=== PATIENT | male | born 1965 | race Caucasian/White ===

== ENCOUNTER 2017-05-21 23:29 | Emergency (ER) | payer BC ==
[~2017-05-21] VITALS: Ht 180.3 cm; Wt 79.7 kg
[~2017-05-21 23:29] MED LIST: FLUO10CA48 PO; LISI5TAB3 PO; [UNRECOGNIZED DRUG - REMARK]
[2017-05-21 23:35] VITALS: TEMP 36.7; Ht 180.3 cm; Wt 79.7 kg
[2017-05-21] MEDS ORDERED: TERA5CAP PO (23:46)
[2017-05-21] MEDS ORDERED: LISI10TA PO (23:46)
[2017-05-21] MEDS ORDERED: CETI10TA84 PO (23:48)
[2017-05-21] MEDS ORDERED: TRIA1SPR4 (23:48)
[2017-05-21] MEDS ORDERED: PRLSR20 PO (23:48)
[2017-05-21] MEDS ORDERED: FEXO-101 PO (23:48)
[2017-05-22] MEDS ORDERED: MoRPHine SULFATE 10 MG/ML CARP/VIAL ONE (00:09)
[2017-05-22] MEDS ORDERED: ONDANSETRON INJ 2 MG/ML 2 ML VIAL ONE (00:09)
[2017-05-22] MEDS ORDERED: KETOROLAC TROMETHAMINE 30 MG/ML VIAL ONE (00:09)
[2017-05-22] MEDS ORDERED: SODIUM CHLORIDE 0.9% 1000ML 1,000 ML IV STA ×2 (00:10→01:29)
--- NOTE | 2017-05-22 00:21 | EMERGENCY ROOM VISIT NOTE ---
History Report prepared by Gera: César Encarnacion Under the Supervision of: Dr. Katy Lopez D.O. First contact with patient: 23:58 Chief Complaint: KIDNEY STONE Stated Complaint: KIDNEY STONE History of Present Illness The patient is a 52 year old male who presents to the Emergency Room with complaints of constant right flank pain beginning prior to arrival. He currently rates his discomfort a 9/10 in severity. The patient states that he was getting ready to lay down to sleep, and his pain suddenly started. He reports that he has a history of one kidney stone, and he passed it before needing surgery. The patient notes that it is on the same side as before, and his symptoms are very similar. He states that he has not had any changes in his diet or lifestyle over the past few days. The patient reports that he has not been able to urinate since, and he almost vomited, but he he did not. He notes that he took one hydrocodone pill for pain. The patient states that he has no other medical problems other than hypertension. Source of History: patient Onset: prior to arrival Position: other (right flank) Symptom Intensity: 9/10 Timing: constant Associated Symptoms: + urinary symptoms (decrease urinary frequency), No vomiting Review of Systems See HPI for pertinent positives & negatives. A total of 10 systems reviewed and were otherwise negative. Past Medical & Surgical Medical Problems: (1) HTN (hypertension) (2) Kidney stone Family History Cancer Heart disease Hypertension Kidney disease Kidney stones Social History Smoking Status: Never Smoker Smokeless Tobacco Use: No Alcohol Use: none Marital Status: Housing Status: lives with significant other Occupation Status: employed Current/Historical Medications Scheduled Cetirizine (Zyrtec), 10 MG PO DAILY Fexofenadine HCl (Allergy 24-Hr), 180 MG PO DAILY Lisinopril (Prinivil), 10 MG PO DAILY Terazosin (Hytrin), 5 MG PO DAILY Triamcinolone Acetonide (Nasal (Nasacort Allergy 24Hr), 1 SPRAY NA DAILY Scheduled PRN Omeprazole (Prilosec), 20 MG PO DAILY PRN for Heartburn Oxycodone/Acetaminophen 5MG/325MG (Percocet 5MG/325MG), 1-2 TABLETS PO Q4H PRN for Pain Allergies Coded Allergies: Sulfamethoxazole w/Trimethoprim (Verified Allergy, Intermediate, HIVES, ) Physical Exam Vital Signs Date Time Temp Pulse Resp B/P (MAP) Pulse Ox O2 Delivery O2 Flow Rate FiO2 05/22/17 02:20 74 18 122/78 98 05/22/17 01:13 66 18 124/84 96 Room Air 05/21/17 23:35 36.7 72 16 147/99 99 Room Air Physical Exam HEENT: Head - normocephalic and atraumatic Pupils are equal, round, and reactive to light. Extraocular eye muscles are intact, and sclera are anicteric. Nose - moist nasal mucosa without discharge. Mouth - moist buccal mucosa. Oropharynx is nonerythematous and there is no tonsillar exudate or edema noted. Neck: Supple; no JVD, nuchal rigidity, cervical lymphadenopathy. Heart: Regular rate and rhythm. There is a normal S1 and S2 with no murmurs, clicks, or gallops appreciated. Lungs: Clear to auscultation bilaterally with no wheezes, rales, or rhonchi. Abdomen: Soft, completely nontender, nondistended, with good bowel sounds. There are no palpable pulsatile masses or hepatosplenomegaly. There is no guarding, rigidity, or rebound noted. Back: Erythema over right back and flank where he was rubbing that area Extremities: No evidence of cyanosis, clubbing, or edema. There are easily palpable peripheral pulses. Skin: Pale and diaphoretic with good turgor Medical Decision & Procedures ER Provider Diagnostic Interpretation: CT results as stated below per my review and radiologist interpretation: CT ABDOMEN & PELVIS: Approximate 5 mm stone at the proximal right ureter without appreciable postobstructive change at this time. Additional punctate nonobstructing stone in the left kidney. Remainder of noncontrast study shows no definite evidence for an additional acute inflammatory process. Radiologist: Andrew Goddard MD Study ready at 0052 and initial results transmitted at 0120 Laboratory Results 05/22/17 00:15 Red Blood Count 4.85, Mean Corpuscular Volume 93.2, Mean Corpuscular Hemoglobin 31.5, Mean Corpuscular Hemoglobin Concent 33.8, Mean Platelet Volume 10.8, Neutrophils (%) (Auto) 75.2, Lymphocytes (%) (Auto) 17.3, Monocytes (%) (Auto) 6.3, Eosinophils (%) (Auto) 0.7, Basophils (%) (Auto) 0.3, Neutrophils # (Auto) 9.24, Lymphocytes # (Auto) 2.13, Monocytes # (Auto) 0.77, Eosinophils # (Auto) 0.09, Basophils # (Auto) 0.04 05/22/17 00:15 Test 05/22/17 00:15 05/22/17 01:30 White Blood Count 12.30 K/uL (4.8-10.8) Red Blood Count 4.85 M/uL (4.7-6.1) Hemoglobin 15.3 g/dL (14.0-18.0) Hematocrit 45.2 % (42-52) Mean Corpuscular Volume 93.2 fL (80-100) Mean Corpuscular Hemoglobin 31.5 pg (25-34) Mean Corpuscular Hemoglobin Concent 33.8 g/dl (32-36) Platelet Count 271 K/uL (130-400) Mean Platelet Volume 10.8 fL (7.4-10.4) Neutrophils (%) (Auto) 75.2 % Lymphocytes (%) (Auto) 17.3 % Monocytes (%) (Auto) 6.3 % Eosinophils (%) (Auto) 0.7 % Basophils (%) (Auto) 0.3 % Neutrophils # (Auto) 9.24 K/uL (1.4-6.5) Lymphocytes # (Auto) 2.13 K/uL (1.2-3.4) Monocytes # (Auto) 0.77 K/uL (0.11-0.59) Eosinophils # (Auto) 0.09 K/uL (0-0.5) Basophils # (Auto) 0.04 K/uL (0-0.2) RDW Standard Deviation 42.4 fL (36.4-46.3) RDW Coefficient of Variation 12.5 % (11.5-14.5) Immature Granulocyte % (Auto) 0.2 % Immature Granulocyte # (Auto) 0.03 K/uL (0.00-0.02) Anion Gap 3.0 mmol/L (3-11) Est Creatinine Clear Calc Drug Dose 78.4 ml/min Estimated GFR () 81.2 Estimated GFR (Non- 70.1 BUN/Creatinine Ratio 22.8 (10-20) Calcium Level 8.9 mg/dl (8.5-10.1) Urine Color DK YELLOW Urine Appearance CLEAR (CLEAR) Urine pH 6.0 (4.5-7.5) Urine Specific [place] 1.025 (1.000-1.030) Urine Protein 1+ (NEG) Urine Glucose (UA) NEG (NEG) Urine Ketones TRACE (NEG) Urine Occult Blood 3+ (NEG) Urine Nitrite NEG (NEG) Urine Bilirubin NEG (NEG) Urine Urobilinogen NEG (NEG) Urine Leukocyte Esterase TRACE (NEG) Urine WBC (Auto) 5-10 /hpf (0-5) Urine RBC (Auto) 10-30 /hpf (0-4) Urine Hyaline Casts (Auto) 1-5 /lpf (0-5) Urine Epithelial Cells (Auto) 10-20 /lpf (0-5) Urine Bacteria (Auto) NEG (NEG) Urine Crystals CALCIUM OXALATE (NONE Urine Mucus PRESENT (NONE PRSENT) Urine Yeast (Auto) (NONE PRSENT) Laboratory results per my review. Medications Administered Medications (Trade) Dose Ordered Sig/Ingris Route Start Time Stop Time Status Last Admin Dose Admin Morphine Sulfate (MoRPHine SULFATE INJ) 10 mg STK-MED ONCE .ROUTE 05/22/17 00:09 05/22/17 00:10 DC 05/22/17 00:20 4 MG Ondansetron HCl (Zofran Inj) 4 mg STK-MED ONCE .ROUTE 05/22/17 00:09 05/22/17 00:10 DC 05/22/17 00:20 4 MG Ketorolac Tromethamine (Toradol Inj) 30 mg STK-MED ONCE .ROUTE 05/22/17 00:09 05/22/17 00:10 DC 05/22/17 00:20 30 MG Sodium Chloride 1,000 ml @ 999 mls/hr Q1H1M STAT IV 05/22/17 00:10 05/22/17 01:10 DC 05/22/17 00:30 999 MLS/HR Sodium Chloride 1,000 ml @ 999 mls/hr Q1H1M STAT IV 05/22/17 01:29 05/22/17 02:29 DC 05/22/17 01:29 999 MLS/HR Oxycodone/ Acetaminophen (Percocet 5/ 325MG Home Pack) 1 homepack UD ONCE PO 05/22/17 01:45 05/22/17 01:46 DC 05/22/17 02:15 1 HOMEPACK Procedure 0009: Ordered Toradol Inj 30 mg .ROUTE, Zofran Inj 4mg .ROUTE, Morphine Sulfate 10mg .ROUTE 0010: Ordered Sodium Chloride 1000 ml @ 999 mls/hr IV. 0129: Ordered Sodium Chloride 1000 ml @ 999 mls/hr IV. 0145: Ordered Oxycodone/Acetaminophen 1 homepack PO ED Course 0006: The patient was evaluated in room C12B. A complete history and physical examination were performed. Nursing notes and previous electronic medical records were reviewed. IV lock was established and labs were drawn as above. 0009: Ordered Toradol Inj 30 mg .IV, Zofran Inj 4mg IV, Morphine Sulfate 4mg IV 0010: Ordered Sodium Chloride 1000 ml @ 999 mls/hr IV. 0051: I reevaluated the patient, and he is feeling comfortable after the medications. He just got back from his CT scan. 0129: Ordered Sodium Chloride 1000 ml @ 999 mls/hr IV. 0131: Upon reevaluation, I had a long conversation with the patient. I discussed findings and results with him. The patient verbalized agreement of the treatment plan. He will be discharged home when he receives his homepack. 0145: Ordered Oxycodone/Acetaminophen 1 homepack PO Medical Decision The patient is a 52 year old male who presents to the ED with right flank pain. Differential diagnosis includes pyelonephritis, ureteral colic, herpes zoster, back strain. Lab results show: WBC of 12.3, stable H&H, BUN of 27, creatinine of 1.2, glucose of 99. Urinalysis: urine is dark yellow, trace ketones, 3+ blood, calcium oxalate crystals present, 10-30 red blood cells, 5-10 white blood cells , trace leukocyte esterase. The patient presents with sudden onset of right flank pain. He has a history of previous kidney stones in 2005. Urinalysis shows moderate blood within the urine. CT scan confirms a right-sided 5 mm proximal right ureteral stone. There is no obvious significant obstructive changes. I reviewed the spines with the patient he is currently comfortable and will be discharged home. He has a primary urologist-Dr. Zhou. He will follow up with her by Thursday if the pain persists. He was given a prescription for Percocet to use for pain. It should be noted that the patient previously passed a 6 mm stone through that ureter. The patient was instructed to return to the emergency department if he develops unbearable pain, vomiting, or fever. [place] Drug Monitoring Program Search Results: patient reviewed within database, no issues identified Impression Primary Impression: Right ureteral calculus Scribe Attestation The scribe's documentation has been prepared under my direction and personally reviewed by me in its entirety. I confirm that the note above accurately reflects all work, treatment, procedures, and medical decision making performed by me. Departure Information Dispostion Home / Self-Care Prescriptions Oxycodone/Acetaminophen 5MG/325MG (PERCOCET 5MG/325MG) Tab 1-2 TABLETS PO Q4H Y for Pain, #20 TAB Prov: Katy Lopez D.O. 05/22/17 Referrals Jet Chavis M.D. (PCP) Forms HOME CARE DOCUMENTATION FORM, IMPORTANT VISIT INFORMATION Patient Instructions Kidney Stones, Kidney Stones Expectant Therapy, My [facility] Additional Instructions Rest. Take a bland diet and plenty of clear liquids Percocet - 1- 2 tabs. every 4-6 hours for pain. Return to the ER for unbearable pain, vomiting, or fever. Follow up on Thursday with Dr. Zhou if pain persists
[2017-05-22 00:44] LABS: BASO % 0.3 %; BASO ABS # 0.04 K/uL (0-0.2); COMPLETE YES; EOS % 0.7 %; HEMATOCRIT 45.2 % (42-52); IG% 0.2 %; LYMPH % 17.3 %; LYMPH ABS # 2.13 K/uL (1.2-3.4); MEAN CELL VOLUME 93.2 fL (80-100); MEAN CORPUSCULAR HEMOGLOBIN 31.5 pg (25-34); MEAN CORPUSCULAR HGB CONC 33.8 g/dl (32-36); MEAN PLATELET VOLUME 10.8 fL (7.4-10.4); MONO % 6.3 %; NEUT % 75.2 %; PLATELET COUNT 271 K/uL (130-400); RED BLOOD COUNT 4.85 M/uL (4.7-6.1)
[2017-05-22 01:03] LABS: BUN/CREATININE RATIO 22.8 (10-20); CALCIUM 8.9 mg/dl (8.5-10.1); CREATININE 1.2 mg/dl (0.60-1.40); POTASSIUM 3.5 mmol/L (3.5-5.1)
[2017-05-22 01:44] LABS: URINE APPEARANCE CLEAR (CLEAR); URINE BILIRUBIN NEG (NEG); URINE COLOR DK YELLOW; URINE NITRITE NEG (NEG); URINE SPECIFIC GRAVITY 1.025 (1.000-1.030); UROBILINOGEN NEG (NEG)
[2017-05-22] MEDS ORDERED: PERCOCET HOME PACK PO ONE (01:45)
[2017-05-22 01:48] LABS: MANUAL MICROSCOPIC REQUIRED? NO; REVIEW REQ? YES
[2017-05-22 01:59] LABS: URINE MUCUS PRESENT (NONE PRSENT)
[2017-05-22] MEDS ORDERED: OXYC-57 PO (02:02)
[2017-05-22 02:20] VITALS: BP 122/78; PULSE 74; O2SAT 98
--- NOTE | 2017-05-22 06:39 | DIAGNOSTIC IMAGING REPORT ---
CT SCAN OF THE ABDOMEN AND PELVIS WITHOUT CONTRAST CLINICAL HISTORY: Right flank pain COMPARISON STUDY: 01/28/2006 TECHNIQUE: CT scan of the abdomen and pelvis was performed from the lung bases to the proximal femurs. Images are reviewed in the axial, sagittal, and coronal planes. IV contrast was not administered for this examination. A dose lowering technique was utilized adhering to the principles of ALARA. CT DOSE: 918.95 mGycm FINDINGS: Lower chest: There are bibasal atelectatic changes Liver: The unenhanced liver is normal in size, contour, and attenuation. There is no intrahepatic biliary ductal dilatation. Gallbladder: Unremarkable. Spleen: Normal in size and attenuation. Pancreas: Unremarkable. Adrenal glands: Unremarkable. Kidneys: There is a nonobstructing 3 mm left renal calculus. No right renal calculi are visualized. There is a 7 x 4 x 4 mm proximal right ureteral calculus with minor secondary obstructive changes. Bowel: There are no transition zones indicate bowel obstruction. There is no acute diverticulitis. There is no acute appendicitis. Peritoneum: There is no intraperitoneal free air or abdominal ascites. There are small fat-containing inguinal hernias. Vasculature: The abdominal aorta is normal in course and caliber. Adenopathy: None. Pelvic viscera: The bladder, and pelvic viscera are unremarkable. There are penile calcifications. Skeletal structures: No destructive osseous lesions are seen. IMPRESSION: 1. 7 x 4 x 4 mm proximal right ureteral calculus with minor secondary obstructive changes 2. Left-sided nephrolithiasis 3. No evidence of bowel obstruction. No evidence of free air Electronically signed by: Umair Berumen M.D. 05/22/2017 6:38 AM Dictated Date/Time: 05/22/2017 6:35 AM
== END 2017-05-22 02:21 | disposition home or self-care (01) ==
LOC: C.EDB 23:30 → C.EDC 05-22 02:21
DX: N20.1 Calculus of ureter (principal); I10 Essential (primary) hypertension; Z87.440 Personal history of urinary (tract) infections; Z79.899 Other long term (current) drug therapy; Z88.2 Allergy status to sulfonamides; Z80.9 Family history of malignant neoplasm, unspecified; Z82.49 Family history of ischemic heart disease and other diseases of the circulatory system; Z84.1 Family history of disorders of kidney and ureter

== ENCOUNTER → 2018-05-14 | Outpatient (CLI) | payer OTHER ==
[~2018-05-14] MED LIST changes: +CETI10TA84 PO; +FEXO-101 PO; -FLUO10CA48 PO; +LISI10TA PO; -LISI5TAB3 PO; +PRLSR20 PO; +TERA5CAP PO; +TRIA1SPR4; -[UNRECOGNIZED DRUG - REMARK]
--- NOTE | 2018-05-14 21:06 | DIAGNOSTIC IMAGING REPORT ---
MRI OF THE LUMBAR SPINE WITHOUT CONTRAST CLINICAL HISTORY: Low back pain radiating into right hip and groin. Low back sprain. COMPARISON STUDY: No previous studies for comparison. TECHNIQUE: Utilizing a 1.5 Cortney magnet and dedicated coil, multiplanar, multiecho imaging of the lumbar spine was performed without IV contrast. FINDINGS: For purposes of numbering on this exam, the L5-S1 disc space is assigned to axial image 25. Alignment of the lumbar spine is anatomic. Vertebral body heights are maintained. The conus terminates at the lower L1 level. Note is made of a probable punctate 2 mm round intradural extramedullary lesion along the nerve roots at the L1-L2 level. No additional intracanalicular lesions are noted. Paravertebral soft tissues are unremarkable. L1-2: The central canal and neural foramen are patent. L2-3: The central canal and neural foramen are patent. L3-4: There is mild disc space narrowing. The central canal and neural foramen are patent. L4-5: There is minimal disc space narrowing. There is minimal disc bulge with tiny central annular tear. Central canal and neural foramen are patent. L5-S1: Note is made of mild disc space narrowing with a central/right paracentral disc protrusion which is small in size. This results in mild narrowing of the right lateral recess. The neural foramen are patent. IMPRESSION: 1. Small central/right paracentral disc protrusion at L5-S1 that results in mild narrowing of the right lateral recess. 2. Minimal disc bulge at L4-L5. No central canal stenosis. 3. Probable tiny 2 mm intradural extramedullary lesion along the nerve roots at the L1-L2 level. This favors a tiny schwannoma or meningioma and is of doubtful significance. A follow-up MRI could be obtained in one year to ensure stability. Electronically signed by: Mauri Brown M.D. 05/14/2018 9:05 PM Dictated Date/Time: 05/14/2018 8:59 PM
== END | disposition home or self-care (01) ==
LOC: C.MRI 18:35
PROVIDERS: ATTEND Nurse Practitioner Family
DX: M79.669 Pain in unspecified lower leg (principal); S33.5XXA Sprain of ligaments of lumbar spine, initial encounter; X58.XXXA Exposure to other specified factors, initial encounter